=== PATIENT | female | born 1995 | race Caucasian/White ===

== ENCOUNTER 2021-03-05 13:48 | Emergency (ER) | payer OTHER ==
[2021-03-05 13:53] VITALS: RESP 16; TEMP 98.8
[2021-03-05] MEDS ORDERED: DOXYCYCLINE 100 MG CAP PO STA (14:54)
[2021-03-05] MEDS ORDERED: LIDOCAINE 1% INJ 10MG/ML (20 ML MDV) IM STA (14:55)
[2021-03-05] MEDS ORDERED: cefTRIAXone 1,000 MG VIAL (IM USE) IM STA (14:56)
[2021-03-05 16:12] LABS: Appearance,Urine Cloudy (Clear); Bilirubin,Urine Negative (Negative); Blood,Urine Negative (Negative); Color,Urine Yellow; Glucose,Urine (UA) Negative (Negative); Ketones,Urine Negative (Negative); Leukocyte Esterase,Urine Trace (Negative); Mucus,Urine Rare /hpf; Nitrite,Urine Negative (Negative); PH, Urine 6.5 (5.0-8.0); Protein,Urine Negative (Negative); RBC,Urine 1 /hpf (0-5); Specific Gravity,Urine 1.018 (1.001-1.035); Squamous Epithelial Cell,Urine 14 /hpf (0-4); Urobilinogen,Urine <2.0 mg/dL (<2.0); WBC,Urine 1 /hpf (0-5)
--- NOTE | 2021-03-05 16:18 | ED ---
Female Urogenital HPI - General Chief complaint: Urogenital Stated complaint: Sores Time Seen by Provider: 03/05/21 13:55 Source: patient Mode of arrival: ambulatory Limitations: no limitations - History of Present Illness Initial comments: 25 year-old female patient presents to the emergency department for evaluation of a sore to her vaginal area and discharge. States that she was seen a week ago at [facility] and had pelvic exam and urine testing for STDs. States she tested negative. She was given IM antibiotics and single dose of oral there. States that she is still having vaginal discharge and pain from the sore. Patient states her boyfriend just tested positive for gonorrhea. She denies any fever, chills, nausea, or vomiting. Denies any chance of , states she has IUD. Patient denies any recent rash, cough, shortness of breath, chest pain, abdominal pain, diarrhea, constipation, back pain, numbness, tingling, dizziness, weakness, hematuria, dysuria, urinary urgency, urinary frequency, headache, visual changes, or any other complaints. - Related Data Previous Rx's Medication Instructions Recorded Doxycycline [Vibramycin] 100 mg PO BID #14 capsule 03/05/21 Allergies Allergy/AdvReac Type Severity Reaction Status Date / Time No Known Allergies Allergy Verified 03/05/21 13:53 Review of Systems ROS Statement: Those systems with pertinent positive or pertinent negative responses have been documented in the HPI. ROS Other: All systems not noted in ROS Statement are negative. Past Medical History Past Medical History: No Reported History History of Any Multi-Drug Resistant Organisms: None Reported Past Surgical History: No Surgical Hx Reported Past Psychological History: No Psychological Hx Reported Smoking Status: Never smoker Past Alcohol Use History: Occasional Past Drug Use History: None Reported General Exam Limitations: no limitations General appearance: alert, in no apparent distress, other (This is a well- developed, well-nourished adult female patient in no acute distress. Vital signs upon presentation are temperature 98.8F, pulse 83, respirations 16, blood pressure 136/85, pulse ox 99% on room air.) ENT exam: Present: normal exam, normal oropharynx, mucous membranes moist Respiratory exam: Present: normal lung sounds bilaterally. Absent: respiratory distress, wheezes, rales, rhonchi, stridor Cardiovascular Exam: Present: regular rate, normal rhythm, normal heart sounds. Absent: systolic murmur, diastolic murmur, rubs, gallop, clicks GI/Abdominal exam: Present: soft, normal bowel sounds. Absent: distended, tenderness, guarding, rebound, rigid External exam: Present: other (white vaginal discharge. There is perineal fissure noted. Single lesion. Tender. No swelling. No drainage.) Neurological exam: Present: alert, oriented X3, CN II-XII intact Psychiatric exam: Present: normal affect, normal mood Skin exam: Present: warm, dry, intact, normal color. Absent: rash Course Vital Signs 03/05/21 13:49 Temperature 98.8 F Pulse Rate 83 Respiratory 16 Rate Blood Pressure 136/85 O2 Sat by Pulse 99 Oximetry Medical Decision Making - Medical Decision Making 25 year-old female patient presents to the emergency department for evaluation of vaginal discharge and wound to the vaginal region. Physical examination did reveal a perineal fissure. No evidence for herpes-like lesions. No abscess. There is white vaginal discharge. Cultures were sent. Patient was given IM dose of rocephin. She will be started on doxycycline. Urine is negative for infection and . Is discharged follow-up with gynecology for further evaluation as soon as possible. Return parameters were discussed in detail. She verbalizes understanding and agrees with this plan. My attending is Dr. Matute. - Lab Data Lab Results 03/05/21 03/05/21 03/05/21 Range/Units 15:06 15:06 15:31 Urine Color Yellow Urine Appearance Cloudy H (Clear) Urine pH 6.5 (5.0-8.0) Ur Specific [place] 1.018 (1.001-1.035) Urine Protein Negative (Negative) Urine Glucose (UA) Negative (Negative) Urine Ketones Negative (Negative) Urine Blood Negative (Negative) Urine Nitrite Negative (Negative) Urine Bilirubin Negative (Negative) Urine Urobilinogen <2.0 (<2.0) mg/dL Ur Leukocyte Esterase Trace H (Negative) Urine RBC 1 (0-5) /hpf Urine WBC 1 (0-5) /hpf Ur Squamous Epith Cells 14 H (0-4) /hpf Urine Mucus Rare H (None) /hpf Urine HCG, Qual Not Detected (Not Detectd) Trichomonas Ag (Rapid) Negative (Negative) Disposition Clinical Impression: Exposure to gonorrhea, Perineal fissure in female Disposition: HOME SELF-CARE Condition: Good Instructions (If sedation given, give patient instructions): Sexually Transmitted Diseases (ED) Additional Instructions: Complete prescription in full. Vaginal cultures take about 3 days, if anything is abnormal they will call you. Follow-up with the primary care physician for recheck in 1-2 days. Return to the emergency department for any new, worsening, or concerning symptoms. Prescriptions: Doxycycline [Vibramycin] 100 mg PO BID #14 capsule Is patient prescribed a controlled substance at d/c from ED?: No Referrals: None,Stated [Primary Care Provider] - 1-2 days Time of Disposition: 16:18
[2021-03-05 16:48] VITALS: BP 129/79; PULSE 79
[2021-03-08 12:48] LABS: C. trachomatis,PCR Negative (Neg,Equiv); Chlamydia trachomatis Source Vagina; N. gonorrhoeae,PCR Negative (Neg,Equiv); Neisseria Source Vagina
== END 2021-03-05 16:47 | disposition home or self-care (01) ==
LOC: EC 13:48
DX: Z20.2 Contact with and (suspected) exposure to infections with a predominantly sexual mode of transmission (principal); K60.2 Anal fissure, unspecified
CPT/HCPCS: 81001; 81025; 87808; 87491; 87591; 87070; 96372; 99283; J2001; J0696

== ENCOUNTER 2024-10-30 15:45 | Emergency (ER) | payer OTHER ==
[2024-10-30 16:14] VITALS: PULSE 74
--- NOTE | 2024-10-30 16:44 | ED ---
Female Urogenital HPI - General Source: patient, RN notes reviewed Mode of arrival: ambulatory Limitations: no limitations <Charity Jurado - Last Filed: 10/30/24 16:40> <Elton Matute - Last Filed: 10/30/24 18:01> - General Chief complaint: Vaginal Bleeding Stated complaint: vaginal bleeding Time Seen by Provider: 10/30/24 16:40 - History of Present Illness Initial comments: Quick [id number] female presenting for vaginal bleeding x 5 days with abdominal cramping. States she was seen at a different facility 2 days ago who told her that her IUD was in her cervix. States her IUD was placed 6 years ago by a physician in [place]. (Charity Jurado) Dictation was produced using [employer] dictation software. please excuse any grammatical, word or spelling errors. Chief Complaint: 29-year-old female requesting IUD removal History of Present Illness: Patient is a 29-year-old female she had an IUD placed 6 days ago. She has had abdominal cramping for the last 5 days. She was seen told that she needs her IUD removed due to symptoms. Patient made an appointment with gynecology however was unable to get to the office in a timely fashion states that she still had persistent cramping. Patient requesting her IUD be removed. The ROS documented in this emergency department record has been reviewed and confirmed by me. Those systems with pertinent positive or negative responses have been documented in the HPI. All other systems are other negative and/or noncontributory. (Elton Matute) - Related Data Previous Rx's Medication Instructions Recorded Doxycycline [Vibramycin] 100 mg PO BID #14 capsule 03/05/21 Allergies Allergy/AdvReac Type Severity Reaction Status Date / Time No Known Allergies Allergy Verified 10/30/24 16:14 Review of Systems ROS Other: All systems not noted in ROS Statement are negative. <Charity Jurado - Last Filed: 10/30/24 16:40> ROS Other: All systems not noted in ROS Statement are negative. <Elton Matute - Last Filed: 10/30/24 18:01> ROS Statement: Those systems with pertinent positive or pertinent negative responses have been documented in the HPI. Past Medical History Past Medical History: No Reported History History of Any Multi-Drug Resistant Organisms: None Reported Past Surgical History: No Surgical Hx Reported Past Psychological History: No Psychological Hx Reported Smoking Status: Vaper Past Alcohol Use History: Occasional Past Drug Use History: None Reported <Charity Jurado - Last Filed: 10/30/24 16:40> General Exam Limitations: no limitations <Charity Jurado - Last Filed: 10/30/24 16:40> <Elton Matute - Last Filed: 10/30/24 18:01> - General Exam Comments Initial Comments: Visual Physical Exam Vital signs reviewed General: Well-appearing, nontoxic, no acute distress. Head: Normocephalic, atraumatic Eyes: PERRLA, EOMI ENT: Airway patent Chest: Nonlabored breathing Skin: No visual rash, normal skin tone Neuro: Alert and oriented 3 Musculoskeletal: No gross abnormalities (Charity Jurado) General: Well-appearing, nontoxic, no acute distress. Head: Normocephalic, atraumatic Eyes: PERRLA, EOMI ENT: Airway patent Chest: Nonlabored breathing Skin: No visual rash, normal skin tone Neuro: Alert and oriented 3 Musculoskeletal: No gross abnormalities Pelvic exam: Little bleeding in the posterior fornix (Elton Matute) Course Vital Signs 10/30/24 16:12 Temperature 98.9 F Pulse Rate 74 Respiratory 18 Rate Blood Pressure 138/91 O2 Sat by Pulse 98 Oximetry Procedures <Elton Matute - Last Filed: 10/30/24 18:01> - Procedures Initial comment: IUD strings grasped with forceps. Gentle traction applied and IUD removed. (Elton Matute) Medical Decision Making <Charity Jurado - Last Filed: 10/30/24 16:40> - Lab Data Result diagrams: 10/30/24 17:06 10/30/24 17:06 <Elton Matute - Last Filed: 10/30/24 18:01> - Medical Decision Making I completed the quick note portion of this chart signed Charity Jurado PA-C (Charity Jurado) Was pt. sent in by a medical professional or institution (, [facility], PYROTECHNIC ASSEMBLER, urgent care, hospital, or correction...) When possible be specific @ -No Did you speak to anyone other than the patient for history (EMS, parent, family, police, friend...)? What history was obtained from this source @ -No Did you review nursing and triage notes (agree or disagree)? Why? @ -I reviewed and agree with nursing and triage notes Were old charts reviewed (outside hosp., previous admission, EMS record, old EKG, old radiological studies, urgent care reports/EKG's, correction records)? Report findings @ -No old charts were reviewed Differential Diagnosis (chest pain, altered mental status, abdominal pain women, abdominal pain men, vaginal bleeding, musculoskeletal, weakness, fever, dyspnea, syncope, headache, dizziness, GI bleed, back pain, seizure, CVA, palpatations, mental health)? @ -Differential vaginal bleeding EKG interpreted by me (3pts min.). @ -None done X-rays interpreted by me (1pt min.). @ -None done CT interpreted by me (1pt min.). @ -None done U/S interpreted by me (1pt. min.). @ -None done What testing was considered but not performed or refused? (CT, X-rays, U/S, labs)? Why? @ -None What meds were considered but not given or refused? Why? @ -None Was smoking cessation discussed for >3mins.? @ -No Were there social determinants of health that impacted care today? How? (Homelessness, low income, unemployed, alcoholism, drug addiction, transportation, low edu. Level, literacy, decrease access to med. care, fci, rehab)? @ -No Was there de-escalation of care discussed even if they declined (Discuss DNR or withdrawal of care, Hospice)? DNR status @ -No What co-morbidities impacted this encounter? (DM, HTN, Smoking, COPD, CAD, Cancer, CVA, ARF, Chemo, Hep., AIDS, mental health diagnosis, sleep apnea, morbid obesity)? @ -None Was patient admitted / discharged? Hospital course, mention meds given and route, prescriptions, significant lab abnormalities, going to OR and other pertinent info. @ -29-year-old female with vaginal cramping and bleeding. Vital signs upon arrival are within acceptable limits. IUD removed. Patient given outpatient referral to gynecology. Did you discuss the management of the patient with other professionals (professionals i.e. , PA, PYROTECHNIC ASSEMBLER, lab, RT, psych nurse, protective services social worker, instructional technology coordinator, teacher, chief human resources officer, employment case manager)? Give summary @ -No Was critical care preformed (if so, how long)? @ -No Undiagnosed new problem with uncertain prognosis? @ -No Drug Therapy requiring intensive monitoring for toxicity (Heparin, Nitro, Insulin, Cardizem)? @ -No Were any procedures done? @ -No Diagnosis/symptom? Acute, or Chronic, or Acute on Chronic? Uncomplicated (without systemic symptoms) or Complicated (systemic symptoms)? @ -IUD removal Side effects of treatment? @ -No Exacerbation, Progression, or Severe Exacerbation? @ -No Poses a threat to life or bodily function? How? (Chest pain, [place], [place], pneumonia, PE, COPD, DKA, ARF, appy, cholecystitis, CVA, Diverticulitis, Homicidal, Suicidal, threat to staff... and all critical care pts) @ -No (Elton Matute) - Lab Data Lab Results 10/30/24 10/30/24 10/30/24 Range/Units 17:06 17:06 17:06 WBC 6.4 (3.8-10.6) k/uL RBC 4.87 (3.80-5.40) m/uL Hgb 14.6 (11.4-16.0) gm/dL Hct 45.5 (34.0-46.0) % MCV 93.4 (80.0-100.0) fL MCH 30.1 (25.0-35.0) pg MCHC 32.2 (31.0-37.0) g/dL RDW 12.5 (11.5-15.5) % Plt Count 258 (150-450) k/uL MPV 7.3 Neutrophils % 66 % Lymphocytes % 23 % Monocytes % 6 % Eosinophils % 4 % Basophils % 0 % Neutrophils # 4.2 (1.3-7.7) k/uL Lymphocytes # 1.5 (1.0-4.8) k/uL Monocytes # 0.4 (0-1.0) k/uL Eosinophils # 0.3 (0-0.7) k/uL Basophils # 0.0 (0-0.2) k/uL Sodium 137 (137-145) mmol/L Potassium 4.2 (3.5-5.1) mmol/L Chloride 103 (98-107) mmol/L Carbon Dioxide 21 L (22-30) mmol/L Anion Gap 13 mmol/L BUN 8 (7-17) mg/dL Creatinine 0.69 (0.52-1.04) mg/dL Est GFR (CKD-EPI)AfAm >90 (>60 ml/min/1.73 sqM) Est GFR (CKD-EPI)NonAf >90 (>60 ml/min/1.73 sqM) Glucose 97 (74-99) mg/dL Plasma Lactic Acid Des 1.2 (0.7-2.0) mmol/L Calcium 10.0 (8.4-10.2) mg/dL Total Bilirubin 0.7 (0.2-1.3) mg/dL AST 21 (14-36) U/L ALT 21 (4-34) U/L Alkaline Phosphatase 47 (38-126) U/L Total Protein 8.1 (6.3-8.2) g/dL Albumin 5.2 H (3.5-5.0) g/dL Disposition <Charity Jurado - Last Filed: 10/30/24 16:40> Is patient prescribed a controlled substance at d/c from ED?: No Time of Disposition: 18:01 <Elton Matute - Last Filed: 10/30/24 18:01> Clinical Impression: Encounter for IUD removal Disposition: HOME SELF-CARE Condition: Good Instructions (If sedation given, give patient instructions): Dysmenorrhea (ED) Referrals: Shruhti Friend DO [Doctor of Osteopathic Medicine] - 1-2 days
[2024-10-30 17:26] LABS: ALT 21 U/L (4-34); AST 21 U/L (14-36); African American GFR (CKD) >90 (>60 ml/min/1.73 sqM); Albumin 5.2 g/dL (3.5-5.0); Alkaline Phosphatase 47 U/L (38-126); Anion Gap 13 mmol/L; Blood Urea Nitrogen 8 mg/dL (7-17); Carbon Dioxide 21 mmol/L (22-30); Chloride 103 mmol/L (98-107); Glucose 97 mg/dL (74-99); Non-African American GFR(CKD) >90 (>60 ml/min/1.73 sqM); Potassium 4.2 mmol/L (3.5-5.1); Sodium 137 mmol/L (137-145); Total Bilirubin 0.7 mg/dL (0.2-1.3); Total Protein 8.1 g/dL (6.3-8.2)
[2024-10-30 17:38] LABS: Basophils % (A) 0 %; Eosinophils # (A) 0.3 k/uL (0-0.7); Eosinophils % (A) 4 %; HCT 45.5 % (34.0-46.0); HGB 14.6 gm/dL (11.4-16.0); Lymphocytes # (A) 1.5 k/uL (1.0-4.8); Lymphocytes % (A) 23 %; MCH 30.1 pg (25.0-35.0); MCHC 32.2 g/dL (31.0-37.0); MCV 93.4 fL (80.0-100.0); Mean Platelet Volume 7.3; Monocytes # (A) 0.4 k/uL (0-1.0); Monocytes % (A) 6 %; Neutrophils # (A) 4.2 k/uL (1.3-7.7); Neutrophils % (A) 66 %; Platelet Count 258 k/uL (150-450); RBC 4.87 m/uL (3.80-5.40); RDW 12.5 % (11.5-15.5); WBC 6.4 k/uL (3.8-10.6)
[2024-10-30 18:23] VITALS: BP 135/72; RESP 20; TEMP 98
== END 2024-10-30 18:22 | disposition home or self-care (01) ==
LOC: EC 15:45
DX: Z30.432 Encounter for removal of intrauterine contraceptive device (principal); F17.290 Nicotine dependence, other tobacco product, uncomplicated
CPT/HCPCS: 36415; 58301; 80053; 83605; 85025; 99284